=== PATIENT | female | born 1935 | race Caucasian/White ===

== ENCOUNTER 2023-08-24 01:09 | Inpatient (IN) | payer MEDICARE, OTHER, SELFPAY ==
[2023-08-23 22:08] VITALS: BP 115/88
--- NOTE | 2023-08-23 22:16 | ED.GENMED ---
History of Present Illness
General
Chief Complaint: Musculo-Skeletal Complaint
Source: patient and ambulance crew
Exam Limitations: altered mental status and dementia
Time Seen by Provider: 08/23/23 22:07
Nursing documentation reviewed up to this point in time: agreed with
History of Present Illness
History of Present Illness:
Pleasantly demented 87-year-old female from [facility] who presents with right hip pain. Patient had an unwitnessed fall
Past History
Past History
ED Past Medical History: GERD, HTN, Hypercholesterolemia and Other (Dementia, paranoia)
Social History
Tobacco: Other (Unknown)
Alcohol: Other (Unknown)
Drug: Other (Unknown)
Phy Exam
General Physical Exam
General Presentation: moderate distress
General age: appears older than age
General Skin: warm and dry
General Habitus: elderly and frail
General Mental: anxious and confused
General Hydration: dry mucous membranes
General Chronic Disability: demented
Neurological Exam
Neurological Exam: speech normal and confused (At baseline)
Musculoskeletal Exam
Musculoskeletal Exam: joint swelling
Skin Exam
Skin Exam: normal color and warm/dry
Psychiatric Exam
Psychiatric Exam: agitated and anxious
Course
Orders/Labs/Results
Orders:
Orders
08/23/23 22:07
Morphine Sulfate 4 mg IV NOW STA
Ondansetron Injectable [Zofran] 4 mg IV NOW STA
CR Hip - RT w/wo Pel 2-3 Vw* Urgent
Comment:
Reason For Exam: pain after fall
Include a pelvis x-ray?: Yes
08/23/23 22:17
CT Head W/o Iv Contrast Urgent
Comment:
Reason For Exam: fall, confusion
08/23/23 22:25
Complete Blood Count/With Diff Urgent
Comprehensive Metabolic Panel Urgent
PTT Urgent
Prothrombin Time Urgent
08/23/23 22:30
Lorazepam [Ativan] 1 mg IV NOW STA
08/23/23 22:37
Urinalysis Reflex To Culture Urgent
Date Specimen was Collected: 08/23/23
Time Specimen was Collected: 22:36
Urine Microscopic Reflex Cult Urgent
Urine Culture Urgent
JILL Source: U
Specimen Description:
Date Specimen was Collected: 08/23/23
Time Specimen was Collected: 22:36
08/24/23 00:55
EKG [Electrocardiogram (*1)] Routine
Reason for Study: PreOp
08/24/23 01:09
Admit/Transfer Patient As Directed
Co-Sign Provider:
Level of Care: Inpatient admission
Assign to:: Medical/Surgical
Physician / Group: [email or web address]
Diagnosis: Acute closed Rt Hip Fx s/p unwitnessed fall
Reason for Hospitalization: Acute closed Rt Hip Fx s/p unwitnessed fall
Expected length of stay greater than two midnights?: Yes
ELOS- Estimated Length of Stay in days: 3
I certify the patient meets the requirements for IP care: Yes
08/24/23 01:11
Code Status As Directed
Resuscitation Status: Full Code
Abnormal Lab Results
08/23/23 08/23/23
22:25 22:37
RBC 3.73 L 10^6/uL
(4.20-5.40)
Hgb 10.9 L g/dL
(12.0-16.0)
Hct 33.2 L %
(37.0-47.0)
MCHC 32.8 L g/dL
(33.0-37.0)
Absolute Neuts (auto) 7.3 H 10^3/uL
(1.4-6.5)
Absolute Monos (auto) 0.8 H 10^3/uL
(0.1-0.6)
Lymphocytes % 17.4 L %
(20.5-51.1)
Sodium 134 L mmol/L
(135-145)
Carbon Dioxide 31 H mmol/L
(22-30)
BUN 25 H mg/dl
(7-17)
Glucose 133 H mg/dl
(70-99)
Leukocyte Esterase Rfl 1+ A
(Negative)
Urine Bacteria (Reflex) Many A
(Negative)
08/23/23 22:25
08/23/23 22:25
Vital Signs
Initial and Last Documented VS:
Initial Vital Signs
Temp Pulse BP Pulse Ox
98.4 F 100 115/88 98
08/23/23 22:08 08/23/23 22:08 08/23/23 22:08 08/23/23 22:08
Last Documented Vital Signs
Temp Pulse Resp BP Pulse Ox
98.4 F 104 17 123/72 97
08/23/23 22:08 08/23/23 22:45 08/23/23 22:45 08/23/23 22:39 08/23/23 22:45
*Radiology
Radiology exam reviewed: preliminary read by ED provider (X-ray of the hip shows obvious fracture. CT of the head negative) and radiology read reviewed
*Pulse Oximetry
Patient hypoxic: no
*Critical Care Note
Total Time (30-74mins, 75-104mins- exclusive of procedures): Not Applicable
Patient Management
Social determinants of health affecting care: Living situation
Discussion with other providers: Hospitalist and Erp Consultant (Dr. Maria, orthopedic surgery)
ED Attending Note
-
Portions of this chart may have been created with voice recognition software.� Occasional wrong word or��sound alike� substitutions may have occurred due to the inherent limitations of voice recognition software.
Discharge Plan
Departure
Patient Disposition: Admit
Date of Disposition: 08/24/23
Time of Disposition: 00:11
Admit to: Med/Surg
Presentation/result/management discussed w/ accepting MD/DO: Hospitalist
Discharge Problem:
Closed fracture of right hip, Dementia
Prescriptions:
No Action
acetaminophen 325 MG tablet
650 mg PO Q4HPRN PRN (Reason: mild pain/temp>100F)
Referrals:
Quincy Goncalves DO [Family Provider] -
Interventions
Interventions:
*Risk Screen - Suicide Last Done: 08/23/23 22:08
*General Assessment Last Done: 08/23/23 22:08
*Neglect/Abuse Screening Last Done: 08/23/23 22:08
ED- Fall Risk Assessment Last Done: 08/23/23 22:20
*ED COVID-19 Vaccine History Last Done: 08/23/23 22:20
ED-Musculoskeletal Assessment Last Done: 08/23/23 22:20
Discharge Date and Time
Print Language: CHADIAN
[2023-08-23] MEDS: MORPHINE SULFATE 4 MG IV (22:23)
[2023-08-23] MEDS: ZOFRAN 4 MG IV (22:24)
[2023-08-23] MEDS: ATIVAN 1 MG IV (22:36)
[2023-08-23 22:37] LABS: % Basophils 0.4 % (0-2); % Eosinophils 1.5 % (0-6); % Immature Granulocytes 0.4 % (0-0.5); % Lymphocytes 17.4 % (20.5-51.1); % Monocytes 8.2 % (1.7-9.3); % Neutrophils 72.1 % (42.2-75.2); Absolute Eosinophils 0.2 10^3/uL (0-0.7); Absolute Lymphocytes 1.8 10^3/uL (1.2-3.4); Absolute Monocytes 0.8 10^3/uL (0.1-0.6); Absolute Neutrophils 7.3 10^3/uL (1.4-6.5); Hematocrit 33.2 % (37.0-47.0); Hemoglobin 10.9 g/dL (12.0-16.0); Mean Corp Hgb Conc. 32.8 g/dL (33.0-37.0); Mean Corpuscular Hgb 29.2 pg (27.0-31.0); Mean Platelet Volume 9.5 fL (7.4-10.4); Nucleated Red Blood Cells % 0 %; Platelet Count 310 10^3/uL (130-400); Red Blood Cell Count 3.73 10^6/uL (4.20-5.40); Red Cell Dist. Width 14.5 % (11.5-14.5); White Blood Cell Count 10.1 10^3/uL (4.8-10.8)
[2023-08-23 22:39] VITALS: BP 123/72
[2023-08-23 22:47] LABS: Urine Albumin Negative (Neg - Trace); Urine Bilirubin Negative (Negative); Urine Character Slightly Cloudy (Clear); Urine Color Yellow; Urine Glucose Negative (Negative); Urine Ketone Negative (Negative); Urine Leukocyte 1+ (Negative); Urine Nitrite Negative (Negative); Urine Occult Blood Negative (Negative); Urine Urobilinogen Negative (Neg - 1+)
[2023-08-23 22:55] LABS: ALT (SGPT) 22 U/L (0-35); AST (SGOT) 29 U/L (14-36); Albumin 3.8 g/dl (3.5-5.0); Alkaline Phosphatase 99 U/L (38-126); Blood Urea Nitrogen 25 mg/dl (7-17); Calcium 9.9 mg/dl (8.4-10.2); Carbon Dioxide 31 mmol/L (22-30); Chloride 99 mmol/L (98-107); Glucose 133 mg/dl (70-99); Potassium 4.8 mmol/L (3.5-5.1); Sodium 134 mmol/L (135-145); Total Bilirubin 0.5 mg/dl (0.2-1.3); Total Protein 6.8 g/dl (6.3-8.2); eGFR > 60.00
[2023-08-23 22:55] LABS: Urine Bacteria Many (Negative); Urine Red Blood Cell 0-2 /HPF (0-2); Urine Squamous Cell 0-2 /LPF (Few)
[2023-08-23 23:00] VITALS: BP 119/56
[2023-08-23 23:42] VITALS: BP 122/61
[2023-08-23 23:52] LABS: APTT 23.4 Sec (23.4-35.0); INR 0.99; PT 13.1 Sec (11.4-14.6)
[2023-08-24] VITALS (19 sets, daily range): BP systolic 89–184; BP diastolic 45–154
--- NOTE | 2023-08-24 01:01 | HPS.HSE ---
Family Physician
-
Family Physician: Quincy Goncalves
Chief Complaint
-
fall and Rt Hip Pain
History of Present Illness
87F HX Dementia, Res of [facility] for s/p unwitnessed fall and screaming due to acute Rt Hip pain
No further HPI can be established due to dementia.
Medical History
Past Medical History
Past Medical History: Reports Dementia (with paranoia ), HTN, Hypercholesterolemia and NIDDM
Past Surgical History: Reports Other (not available )
Social History
Tobacco: Other (unknown )
Alcohol: None
Living: Residential
Family History
Family History: Not pertinent
Allergies / Home Medications
Allergies reflects when Allergies were last updated in [employer].
Home Medications with original date entered in [employer]
Allergy/Medication List:
Allergies
Allergy/AdvReac Type Severity Reaction Status Date / Time
Fish Containing Products Allergy Unknown Verified 04/29/20 14:45
Home Medications
acetaminophen 325 mg tablet 650 mg PO Q4HPRN PRN mild pain/temp>100F 03/31/21
Review of Systems
-
Unable to obtain full review of systems at this time due to: Dementia
Constitutional: Reports No Symptoms
EENT: Reports No Symptoms
Respiratory: Reports No Symptoms
Cardiac: Reports No Symptoms
Abdomen/GI: Reports No Symptoms
: Reports No Symptoms
Musculoskeletal: Reports Joint Pain (R Hip pain )
Skin: Reports No Symptoms
Neurological: Reports No Symptoms
Endocrine: Reports No Symptoms
Hematologic/Lymphatic: Reports No Symptoms
Psych: Reports No Symptoms
Physical Exam
Vital Signs
Vital Signs
Temp Pulse Resp BP Pulse Ox
98.4 F 104 17 123/72 97
08/23/23 22:08 08/23/23 22:45 08/23/23 22:45 08/23/23 22:39 08/23/23 22:45
Physical Exam
General: Well Nourished (thin and looks cahectic ) and Other (sleeping s/p IV Morphine 4mg plus IV Ativan 1mg given at ER )
HEENT: NormoCephalic and Anicteric
Respiratory: Clear
Cardiac: S1/S2 and Regular Rhythm
Breast: Deferred by me
GI: Soft, Non Tender and Non Distended
Rectal: Deferred by Provider
Genito-urinary: Deferred by me
Skin: Warm and Dry
Neuro: Sedated and Other
Psych: Other (sleeping IV Morphine 4mg plus IV Ativan 1mg given at ER )
Laboratory Results
-
08/23/23 22:25
08/23/23 22:25
Laboratory Results
PT 13.1 Sec (11.4-14.6) 08/23/23 22:25
INR 0.99 08/23/23 22:25
APTT 23.4 Sec (23.4-35.0) 08/23/23 22:25
Total Bilirubin 0.5 mg/dl (0.2-1.3) 08/23/23 22:25
AST 29 U/L (14-36) 08/23/23 22:25
ALT 22 U/L (0-35) 08/23/23 22:25
Alkaline Phosphatase 99 U/L (38-126) 08/23/23 22:25
Data Reviewed
-
CT Scan: Discussed with Physician
Lab Data: Labs Reviewed by me
Old Records: Reviewed
Impression/Plan
-
Reviewed VS: Afebrile HR 100s BP 115/88 POx 98 on RA
Data
WCC 10
Hgb 10.9 -last Hgb was 13.2 in 2020
Na 134 BG 133
CO2 31
BUN 25
Cr 0.6 eGFR > 60
nl LFTs
Unremarkable UA for UTI
UCx sent
Rt Hip XR: R Hip closed Fx
NEG HCT
Last hospitalist admission: NIL
ASSESSMENT & PLAN
Acute closed Rt Hip Fx s/p unwitnessed Fall at the facility
- EKG
- RCRI zero class I risk
- Benefit out weigh risk floor ortho ORIF
- Medically acceptable to proceed with ORIF if indicated
- Fx protocol set for pain control, BW regime
- Ortho consulted
Lethargic s/p IV Morphine 4mg plus IV Ativan 1mg given at ER
- Aspiration precaution but current she is NPO
- Judicious use of pain Meds and hold if or excessive sedation
HX Dementia with paranoia
- Falls precaution
Conditions BOX ICER : pending Rx reconciliation
DMT2; add ISS low
GERD
Primary HTN
Hypercholesterolemia
DVT Px: SCD
Code: Full
IP MS
--- NOTE | 2023-08-24 03:18 | PTCARENOTE ---
Pt transfer from ER 2:20, pt lethargic, drowsy, rec'd ativan and morphine in ER. Pt arousable to verbal stimuli however unable to answer admission questions, pt resides at [facility], nurse attempted x2 to call for report /admission information ,
unable to get staff on the line. pt rec;vd aysha care incon of urine. bed alram in place hx dx dementia and Alzheimer, behaviors reported from ER. pt is cachectic, skin fragile dry , stage 1 sacrum, heels dry with thick calloused skin as well as on
feet and toe nails thick, long and yellow discolored. VS stable, oriented to unit.
[2023-08-24 03:51] LABS: Glucose - Point of Care 128 mg/dl (70-99)
--- NOTE | 2023-08-24 05:49 | PTCARENOTE ---
[facility] called x2 for further vaccine information, they did not return call and second time nurse called the line was hung up .
[2023-08-24 08:19] LABS: Glycohemoglobin (HgbA1c) 5.9 % (4.0-5.6)
--- NOTE | 2023-08-24 08:21 | W.PN.UPDATE ---
Update Note
Progress Note Update
Full H&P to follow; patient seen this a.m. Tentative for OR this afternoon for right hip cephalomedullary nail fixation with Dr. Maria. Due to baseline dementia patient is unable to consent. Power of spragger/daughter listed in chart and left
voicemail x 2 at both numbers. Will try again for consent for surgery.
N.p.o. for OR this afternoon tentative. Antibiotics on-call to operating room
Pending verification of medication list, no indication of current anticoagulant therapy
[2023-08-24] MEDS: NOVOLOG FLEXPEN-LOW RESISTANCE SC ×3 (08:23→17:30)
[2023-08-24 12:14] LABS: Glucose - Point of Care 82 mg/dl (70-99)
--- NOTE | 2023-08-24 15:37 | CM ---
Patient currently in OR. Patient is LTC at [facility], and is a Medicaid bed hold. Patient has been at facility since 2019. CM called to admissions at [facility]. Admissions indicated that they would call CM with past level of care. If
patient ready for discharge back to facility please call Nicky Finch the concrete stone finishing supervisor weekend person for [place] at [phone]. CM will continue to follow for discharge planning needs.
Plan; return to SNF when medically appropriate.
[2023-08-24 15:52] LABS: Glucose - Point of Care 94 mg/dl (70-99)
--- NOTE | 2023-08-24 17:59 | CON.ORTHO ---
Consultation
-
Date/Time Consultation Requested: 08/24/2023 0244
Date/Time Consultation Performed: 08/24/2023 0800
Requesting Provider: Dr. John Syed
Performing Provider: JOSE Lopez, Dr. Toshia Maria
Reason for Consultation: Right hip fracture
Consultation - Orthopedics
History
87-year-old female presenting for her long-term assisted living facility with significant past medical history of advanced dementia presenting via EMS to [facility] for an unwitnessed fall and pain throughout the right lower extremity when
found. Medical workup and x-rays of the right hip shows a displaced intertrochanteric femur fracture. No other reported injuries to date. Power of health care attorney listed as her daughter. Patient is unable to provide collateral information on history
and physical, majority information collected from chart review and from daughter.
Allergies / Home Medications
Allergy/AdvReac Type Severity Reaction Status Date / Time
Fish Containing Products Allergy Unknown Verified 04/29/20 14:45
�Medication �Instructions �Recorded
acetaminophen 325 mg tablet 650 mg PO Q4HPRN PRN mild 03/31/21
pain/temp>100F
Past Medical History: Reports Dementia (with paranoia ), HTN, Hypercholesterolemia and NIDDM
Past Surgical History: Reports Other (not available )
Social History
Tobacco: Other (unknown )
Alcohol: None
Living: Senior Living
Family History
Family History: Not pertinent
Vital Signs / Lab Results
Temp Pulse Resp BP Pulse Ox
98.2 F 110 16 137/72 91
08/24/23 17:13 08/24/23 17:13 08/24/23 17:13 08/24/23 17:13 08/24/23 17:13
08/23/23 22:25
08/23/23 22:25
Physical examination: Examination of the right hip shows skin is intact with no erythema edema or ecchymosis. Extremity is shortened and externally rotated. Patient demonstrates motor function intact distally but unable to provide response for
sensation with baseline mental status. Discomfort with logroll but no significant tenderness about the knee, lower leg or ankle or foot.
Imaging: X-rays taken of the right hip show displaced intertrochanteric femur fracture
Assessment / Plan
87-year-old female right displaced intertrochanteric femur fracture with significant past medical history advanced dementia without reported anticoagulant therapy
Power of health care attorney listed in documentation as the patient's daughter who was successfully contacted. Discussed with the power of health care attorney/daughter the significance of hip fractures there is an increased morbidity and mortality associated with these
and they are significant injuries; reviewed that a portion of patient's return towards ambulatory baseline status, another subset of patients are decreased when activity level, and other subset of patients pass away relative to comorbid conditions
and decreased ambulatory status. Discussed it is recommended for majority of patients to undergo operative intervention for optimal outcomes so that they may have an increased ambulatory status. It was further discussed with the patient that the
injury sustained is considered a fragility fracture which occurs in the setting of osteoporosis. Discussed with the patient the significance of this as there is an increased risk of further fragility fractures in the future. Recommend when
discharged and in the nearby future for a follow-up with her primary care provider and discussion of management of osteoporosis and mitigating fall risk is much as possible in the future.
Images were reviewed and discussed with the POA/daughter regarding the patient's injury. The injury and respective operative and nonoperative interventions reviewed with the respective family member to include the risks and benefits rehabilitation
and prognosis for each. The treatment and operative technique, postoperative follow-up, postoperative rehabilitation and surgical prognosis was reviewed in detail. After thorough discussion of potential treatment options the respective family
member/POA wish to proceed with operative intervention.
Patient planned for OR for right cephalomedullary nail fixation [address] Maria[address] However health care attorney/daughter discussed operative and nonoperative options with Dr. Maria and obtained consent.
-Nonweightbearing to right lower extremity
-N.p.o.
-Antibiotics on-call to operating room
-Will update postoperative recommendations
--- NOTE | 2023-08-24 18:01 | W.PN.HOSP.TC ---
Today's Communication/Plan
-
PT/OT when able--pt post op
NSS
Assessment / Plan
Assessment / Plan
pt is an 87 year old female
Acute closed Rt Hip Fx s/p unwitnessed Fall at the facility--apprec ortho--s/p ORIF--will need PT/OT if can follow commands
Lethargic s/p IV Morphine 4mg plus IV Ativan 1mg given at ER --pain meds as able, use minimal dosing to provide pain relief
HX Dementia with paranoia-- Falls precaution --renew restraints
DMT2--add ISS low
GERD
Essential HTN-- no meds listed
Hypercholesterolemia --noted
DVT Px: SCD
Code: Full
Anticipated Discharge: > 48 hours
Subjective/Interval History
-
Date of Service: August 24, 2023
pt with dementia--returned from surgery
Objective Data
-
Vital Signs:
max temp for 24 hours
08/23/23
22:08
Temp 98.4 F
Vital Signs
Temp Pulse Resp BP Pulse Ox
98.2 F 110 16 137/72 91
08/24/23 17:13 08/24/23 17:13 08/24/23 17:13 08/24/23 17:13 08/24/23 17:13
I&O
08/23/23 08/24/23 08/25/23
06:59 06:59 06:59
Intake Total 50 / 50
Balance 50 / 50
Review of Systems
-
Unable to obtain full review of systems at this time due to: Dementia
Physical Exam
-
General: Appears Chronically Ill and Cachectic
HEENT: Normocephalic and Atraumatic
Respiratory: Clear to Auscultation; Negative Wheezes or Rhonchi
Cardiac: Regular Rhythm, S1/S2, Murmur and Tachycardic
GI: Soft, Nontender, Nondistended and Normal Bowel Sounds
Musculoskeletal: No Clubbing, No Cyanosis and No Edema
[2023-08-24] MEDS: NSS 1000 IV (18:19)
--- NOTE | 2023-08-24 18:35 | PTCARENOTE ---
return to floor about 1715. Placed in restraints d/t removing IV and pulling at dressings., being uncooperative to care, and for her safety. Started IVF d/t HR 110. bed low call ace in [facility]. NPO until o600? but supply sips of H20. HOB. applied
pure for cleanliness. dressings CDI
[2023-08-24] MEDS: ASPIRIN 325 MG PO (21:00)
[2023-08-24 21:58] LABS: Glucose - Point of Care 140 mg/dl (70-99)
[2023-08-24] MEDS: ANCEF 5 IV (23:05)
[2023-08-25 03:38] VITALS: BP 104/69
[2023-08-25] MEDS: NSS 1000 IV (04:19)
[2023-08-25] MEDS: ANCEF 5 IV (06:00)
--- NOTE | 2023-08-25 06:15 | PTCARENOTE ---
Received patient at start of nightshift in b/l soft limb restraints and 4 bed rails up, during this nightshift restraints could not be removed as patient continued pulling on IV line and could not follow direction; had also received patient with
purewick in place, had 450ml output this nightshift, device changed twice during this shift, device remains in use as patient is combative and uncooperative when attempting to change incontinent attends; will give updated report to dayshift RN to
continue to monitor.
[2023-08-25 07:15] VITALS: BP 119/72
[2023-08-25 07:32] LABS: Glucose - Point of Care 89 mg/dl (70-99)
[2023-08-25] MEDS: NOVOLOG FLEXPEN-LOW RESISTANCE SC ×3 (07:48→18:10)
[2023-08-25] MEDS: ASPIRIN PO (08:48)
--- NOTE | 2023-08-25 09:04 | W.PN.HOSP.TC ---
Today's Communication/Plan
-
await PT/OT
d/c IVF
Assessment / Plan
Assessment / Plan
pt is an 87 year old female
Acute closed Rt Hip Fx s/p unwitnessed Fall at the facility--apprec ortho--s/p ORIF, POD 1--will need PT/OT if can follow commands--pain meds as able, use minimal dosing to provide pain relief--labs pending
HX Dementia with paranoia-- Fall precautions
DMT2--add ISS low
GERD
Essential HTN-- no meds listed
Hypercholesterolemia --noted
DVT Px: SCD
Code: Full
Anticipated Discharge: 24 - 48 hours
Subjective/Interval History
-
Date of Service: August 25, 2023
pt awake and mad that she is in restraints
Objective Data
-
Labs:
Laboratory Results
08/25/23
08:34
WBC Pending
Hgb Pending
Hct Pending
Plt Count Pending
Sodium Pending
Potassium Pending
Chloride Pending
Carbon Dioxide Pending
BUN Pending
Creatinine Pending
Glucose Pending
Calcium Pending
Vital Signs:
max temp for 24 hours
08/24/23
20:45
Temp 99.3 F
Vital Signs
Temp Pulse Resp BP Pulse Ox
97.2 F 106 16 119/72 98
08/25/23 07:15 08/25/23 07:15 08/25/23 07:15 08/25/23 07:15 08/25/23 07:15
I&O
08/24/23 08/25/23 08/26/23
06:59 06:59 06:59
Intake Total 1250 / 1250
Output Total 450 / 450
Balance 800 / 800
Review of Systems
-
Unable to obtain full review of systems at this time due to: Dementia
Physical Exam
-
General: Appears Chronically Ill, Cachectic and Other (soft limb (R/L) wrist restraints)
HEENT: Normocephalic and Atraumatic; Negative Oxygen
Respiratory: Clear to Auscultation; Negative Wheezes or Rhonchi
Cardiac: Regular Rhythm and S1/S2; Negative Murmur
GI: Soft, Nontender, Nondistended and Normal Bowel Sounds
Musculoskeletal: No Clubbing, No Cyanosis and No Edema
Psych: Agitated
[2023-08-25 09:25] LABS: Hematocrit 28.3 % (37.0-47.0); Mean Corp Hgb Conc. 31.8 g/dL (33.0-37.0); Mean Corpuscular Hgb 28.8 pg (27.0-31.0); Mean Corpuscular Volume 90.7 fL (81.0-99.0); Mean Platelet Volume 9.7 fL (7.4-10.4); Platelet Count 283 10^3/uL (130-400); Red Blood Cell Count 3.12 10^6/uL (4.20-5.40); Red Cell Dist. Width 14.2 % (11.5-14.5); White Blood Cell Count 9.7 10^3/uL (4.8-10.8)
[2023-08-25 09:30] LABS: Blood Urea Nitrogen 13 mg/dl (7-17); Calcium 8.9 mg/dl (8.4-10.2); Carbon Dioxide 28 mmol/L (22-30); Chloride 97 mmol/L (98-107); Estimated Creatinine Clearance 42 ml/min; Glucose 81 mg/dl (70-99); Magnesium 2.1 mg/dl (1.6-2.3); Sodium 134 mmol/L (135-145); eGFR > 60.00
[2023-08-25 12:00] VITALS: BP 119/82
--- NOTE | 2023-08-25 12:54 | W.PN.ORTHO ---
Today's Communication / Plan
-
87F POD1 R hip ROSETTE w/ Dr. Maria
-Partial weightbearing right lower extremity with assistive devices
-PT/OT/discharge planning
-Recommend 325 mg aspirin daily x 30 days unless other chemoprophylaxis recommended per primary
-Pain controlled on current regimen
-Diet per primary
-Postop antibiotics completed
-Orthopedic surgery will continue to follow
Assessment
.
Distal Motor Intact: Yes
Dressing:
Clean, dry and intact.
Plan
.
Surgery / Date: 24 August 2023 R hip CMN w/ Dr. Maria
Activity:
Out of bed.
PT/OT
Subjective
.
.:
Patient resting sitting upright. Agitated with baseline dementia. No significant hip pain complaint
Vital Signs and Labs
.
Vital Signs and Labs:
Lab Results
08/25/23 08:34
08/25/23 08:34
Temp Pulse Resp BP Pulse Ox
97.6 F 107 16 119/82 100
08/25/23 12:00 08/25/23 12:00 08/25/23 12:00 08/25/23 12:00 08/25/23 12:00
PT 13.1 Sec (11.4-14.6) 08/23/23 22:25
INR 0.99 08/23/23 22:25
--- NOTE | 2023-08-25 14:02 | PTCARENOTE ---
0830. spit morning meds at nurse. refusing all care trying to swing and hit. d/c restraints to hopefully alleviate heightened agitation, grapping at Iv and ripping/removed.
Order for surjit chair at 1010. Family arrived. Very concerned but not surprised. would like podiatry to look at her feet. Nurse stated we are acute care/also risk for infection. Need to set thing up with LP. While trying to clean and changed brief pt
is hitting nurse/tech. Did place on commode and did urinate. Ate lunch. Attempt pills with family spit pills at them. Asked to bring in glasses b/c she is risk for falling without but they think LP lost them.
1130. pt would not allow blood sugar to be drawn
[2023-08-25 16:00] VITALS: BP 124/86
[2023-08-25 16:35] LABS: Glucose - Point of Care 111 mg/dl (70-99)
[2023-08-25 21:19] LABS: Glucose - Point of Care 97 mg/dl (70-99)
[2023-08-25 23:02] VITALS: BP 118/62
--- NOTE | 2023-08-26 06:43 | PTCARENOTE ---
patient fell asleep approx 0130. pleasant in evening with staff, cooperative with hygiene but did not want to take any medication.
[2023-08-26 07:27] VITALS: BP 127/67
[2023-08-26 08:40] LABS: Glucose - Point of Care 119 mg/dl (70-99)
[2023-08-26] MEDS: NOVOLOG FLEXPEN-LOW RESISTANCE SC ×2 (08:52→11:57)
[2023-08-26] MEDS: ASPIRIN PO (08:53)
--- NOTE | 2023-08-26 11:48 | W.PN.ORTHO ---
Today's Communication / Plan
-
87F POD2 R hip ROSETTE w/ Dr. Maria
-Partial weightbearing right lower extremity with assistive devices
-PT/OT/discharge planning
-Recommend 325 mg aspirin daily x 30 days unless other chemoprophylaxis recommended per primary
-Pain controlled on current regimen
-Diet per primary
-Orthopedic surgery will follow peripherally at this time; voicemail was left with family member regarding orthopedic care standpoint. Discharge information was completed
Assessment
.
Dressing:
Clean, dry and intact. Minimal strikethrough
Plan
.
Surgery / Date: 24 August 2023 R hip ROSETTE w/ Dr. Maria
DVT Prophylaxis: Aspirin
Activity:
Out of bed.
PT/OT
Subjective
.
.:
Patient resting comfortably.
Vital Signs and Labs
.
Vital Signs and Labs:
Lab Results
08/25/23 08:34
08/25/23 08:34
Temp Pulse Resp BP Pulse Ox
98.3 F 108 16 127/67 98
08/26/23 07:27 08/26/23 07:27 08/26/23 07:27 08/26/23 07:27 08/26/23 07:27
PT 13.1 Sec (11.4-14.6) 08/23/23 22:25
INR 0.99 08/23/23 22:25
--- NOTE | 2023-08-26 12:35 | W.PN.HOSP.TC ---
Today's Communication/Plan
-
would d/c back to SNF in AM if remains stable
Assessment / Plan
Assessment / Plan
pt is an 87 year old female
Acute closed Rt Hip Fx s/p unwitnessed Fall at the facility--apprec ortho--s/p ORIF, POD 2--will need PT/OT if can follow commands--pain meds as able, use minimal dosing to provide pain relief--asa for DVT proph
HX Dementia with paranoia-- Fall precautions
DMT2--add ISS low
GERD
Essential HTN-- no meds listed
Hypercholesterolemia --noted
DVT Px: SCD
Code: Full
Anticipated Discharge: Within 24 hours
Subjective/Interval History
-
Date of Service: August 26, 2023
pt calm
Objective Data
-
Vital Signs:
max temp for 24 hours
08/25/23
23:02
Temp 98.8 F
Vital Signs
Temp Pulse Resp BP Pulse Ox
98.3 F 108 16 127/67 98
08/26/23 07:27 08/26/23 07:27 08/26/23 07:27 08/26/23 07:27 08/26/23 07:27
I&O
08/25/23 08/26/23 08/27/23
06:59 06:59 06:59
Intake Total 1250 / 1250 660 / 660 480 / 480
Output Total 450 / 450
Balance 800 / 800 660 / 660 480 / 480
Review of Systems
-
All other systems: Reviewed and negative
Physical Exam
-
General: Well Developed, No Apparent Distress, Appears Chronically Ill and Cachectic
HEENT: Normocephalic and Atraumatic
Respiratory: Clear to Auscultation; Negative Wheezes or Rhonchi
Cardiac: Regular Rhythm and S1/S2; Negative Murmur
GI: Soft, Nontender, Nondistended and Normal Bowel Sounds
Musculoskeletal: No Clubbing, No Cyanosis and No Edema
[2023-08-26 16:11] LABS: Glucose - Point of Care 331 mg/dl (70-99)
[2023-08-26 16:25] VITALS: BP 123/47
[2023-08-26 18:07] LABS: Glucose - Point of Care 326 mg/dl (70-99)
[2023-08-26] MEDS: NOVOLOG FLEXPEN-LOW RESISTANCE 4 UNITS SC (18:24)
--- NOTE | 2023-08-26 19:25 | PTCARENOTE ---
BS spiked to 331 d/t having a soda. pt did hit and bite today. But at times pleasant, spoke on phone with kitchen at dinner to order own dinner with some difficulty.
[2023-08-26 21:24] LABS: Glucose - Point of Care 171 mg/dl (70-99)
[2023-08-26 23:40] VITALS: BP 112/65
[2023-08-27 06:36] LABS: Mean Corp Hgb Conc. 33.3 g/dL (33.0-37.0); Mean Corpuscular Hgb 29.1 pg (27.0-31.0); Mean Corpuscular Volume 87.4 fL (81.0-99.0); Mean Platelet Volume 9.7 fL (7.4-10.4); Platelet Count 329 10^3/uL (130-400); Red Blood Cell Count 3.09 10^6/uL (4.20-5.40); Red Cell Dist. Width 14.1 % (11.5-14.5); White Blood Cell Count 7.4 10^3/uL (4.8-10.8)
[2023-08-27 07:06] LABS: Blood Urea Nitrogen 14 mg/dl (7-17); Calcium 8.6 mg/dl (8.4-10.2); Carbon Dioxide 28 mmol/L (22-30); Chloride 100 mmol/L (98-107); Estimated Creatinine Clearance 42 ml/min; Glucose 113 mg/dl (70-99); Sodium 132 mmol/L (135-145); eGFR > 60.00
[2023-08-27 07:11] VITALS: BP 152/67
--- NOTE | 2023-08-27 07:27 | W.PN.HOSP.TC ---
Today's Communication/Plan
-
dc
Assessment / Plan
Assessment / Plan
pt is an 87 year old female
Acute closed Rt Hip Fx s/p unwitnessed Fall at the facility--apprec ortho--s/p ORIF, POD 3--will need PT/OT if can follow commands--pain meds as able, use minimal dosing to provide pain relief--asa for DVT proph
HX Dementia with paranoia-- Fall precautions . No agitation noted.
DMT2--add ISS low
GERD
Cosntipation, resolved. No abd pain or distended.
Essential HTN-- no meds listed
Hypercholesterolemia --noted
DVT Px: SCD
Code: Full
Total discharge time spent to see the patient, examine the patient on the floor, review data and lab results, discuss discharge plan with patient, nursing staff around 65 minutes.
Anticipated Discharge: Today
Subjective/Interval History
-
Date of Service: August 27, 2023
No events over night
Had BM
Objective Data
-
Labs:
Laboratory Results
08/27/23
05:26
WBC 7.4
Hgb 9.0 L
Hct 27.0 L
Plt Count 329
Sodium 132 L
Potassium 4.0
Chloride 100
Carbon Dioxide 28
BUN 14
Creatinine 0.3 L
Glucose 113 H
Calcium 8.6
Vital Signs:
Vital Signs
Temp Pulse Resp BP Pulse Ox
98.6 F 106 18 152/67 98
08/27/23 07:11 08/27/23 07:11 08/27/23 07:11 08/27/23 07:11 08/27/23 07:11
I&O
08/26/23 08/27/23 08/28/23
06:59 06:59 06:59
Intake Total 660 / 660 600 / 600
Balance 660 / 660 600 / 600
[2023-08-27 08:17] LABS: Glucose - Point of Care 114 mg/dl (70-99)
[2023-08-27] MEDS: NOVOLOG FLEXPEN-LOW RESISTANCE SC ×2 (08:30→11:53)
[2023-08-27] MEDS: ASPIRIN PO (08:51)
[2023-08-27 11:52] LABS: Glucose - Point of Care 138 mg/dl (70-99)
[2023-08-27 12:36] VITALS: BMI 15.8
--- NOTE | 2023-08-27 13:46 | CM ---
Addendum entered by Roseline Pritchard 08/27/23 13:59:
Transport to [facility] is scheduled for 4:40 PM. Facility notified.
Original Note:
Patient has been medically cleared for discharge back to [facility] for resumption of LTC. Daughter Donna Nicholas, has been notified. Catrachito in admissions at [facility] has been notified and accepted patient for return.
NURSE TO NURSE REPORT # [phone] (Main #)
FAX # [phone]
[2023-08-27 14:31] VITALS: BP 135/74
--- NOTE | 2023-08-27 14:39 | W.DCSUMMARY ---
Discharge Summary
Discharge Data
Date of Admission: 08/24/23
Date of Discharge: 08/27/23
-
Pending Results: No
Hospital Course
87 years old female admitted after mechanical fall and was found to have acute right hip fracture. Patient was evaluated by orthopedic doctor and was found to have displaced right intertrochanteric hip fracture and she underwent open reduction
with internal fixation with gamma nail by Dr. Maria on 08/24/23. No complications reported. Patient had history of advanced dementia with paranoia. She did not have severe agitation. She was given aspirin for deep venous thrombosis
prophylaxis. She was evaluated by physical therapy and recommended correction facility. Patient remained hemodynamically stable and was discharged in a stable condition.
Discharge Plan
-
Patient Disposition: Skilled Nursing/SNF
Discharge Diagnosis/Procedures: Acute closed right hip fracture after unwitnessed fall status post open reduction internal fixation, history of dementia with paranoia, type 2 diabetes mellitus, gastroesophageal reflux disease, essential
hypertension, hyperlipidemia
Deep venous thrombosis prophylaxis with aspirin 325 mg for 4 weeks
Condition: Fair
Diet: As tolerated
Activity: With assistance
Additional Activity: partial weight bearing right leg with walker
Driving Restrictions: No driving
Bathing Restrictions: OK to Shower
Wound Care: maintain dressings; can change 7-10 days out from surgery
Instructions: Hip Fracture (DC)
Referrals:
Quincy Goncalves I., DO [Family Provider] - in less than 1 week
Toshia Maria I., DO [Active] - (Please contact the office [phone] to schedule outpatient follow-up. If discharged to an assisted rehab facility they can perform a wound check 2 weeks from date of surgery for suture/staple removal. If not,
recommend outpatient follow-up with our office at 2 weeks from date of surgery for wound check. If 2-week wound care visit is done at acute rehab facility/correction facility recommend 4-week follow-up from date of surgery with x-rays to be
done and wound check of the hip and femur. Please contact contact sooner for questions or concerns)
Prescriptions:
New
sennosides [Senna Laxative] 8.6 mg Tablet
17.2 mg PO HS Qty: 20 0RF
aspirin 325 mg Tablet
325 mg PO DAILY Qty: 30 0RF
tamsulosin 0.4 mg Capsule
0.4 mg PO DAILYPRN PRN (Reason: bladder scan volume > 400 mL) Qty: 10 0RF
docusate sodium 100 mg Capsule
100 mg PO BID Qty: 60 0RF
risperidone 0.25 mg Tablet
0.25 mg PO [id number] PRN (Reason: severe agitation) Qty: 10 0RF
Continued
acetaminophen 325 MG tablet
650 mg PO Q4HPRN PRN (Reason: mild pain/temp>100F)
Discharge Orders:
Discharge Patient (As Directed); Ordered 08/27/23
Ordered By: Dustin Diaz
Discharge Date and Time
Discharge Date/Time: 08/27/23 16:59
Print Language: URDU
--- NOTE | 2023-08-31 15:27 | PN.CDI ---
Addendum entered and electronically signed by Dustin Diaz MD 08/31/23 16:13:
'Stage 1 sacral pressure injury, POA.'
Original Note:
CDI
- -
CDI:
Physician Documentation Request
Admit Date: 08/24/23 01:09
Dear Doctor Emily,
Patient admitted with right hip fracture s/p ORIF.
08/23 Nursing skin assessment, 'Stage 1 sacral pressure injury, POA.'
Physician documentation of the type and location of wounds is required for compliant documentation. Based on the above clinical findings and your assessment, please provide the following in your progress note:
Type (etiology) of ulcer/wound:
- Pressure (decubitus) ulcer
- Other
- Unable to determine
For a pressure ulcer, please also include the stage* of the ulcer:
- Stage 1 - Skin intact, non-blanchable redness
- Stage 2 - Partial thickness loss of dermis, includes intact or open blister
- Stage 3 - Full thickness tissue not including bone, tendon or muscle
- Stage 4 - Full thickness tissue loss, including exposed bone, tendon or muscle
- Unstageable - Full thickness loss in which the base of the ulcer is covered by slough (yellow, diane, perla, green or brown) and/or eschar (diane, brown or black) in the wound bed.
- Unable to determine
Use of terms such as suspected, likely, concern for, or probable (associated with a specific diagnosis that is being evaluated, monitored, or treated as if it exists) are acceptable and can be coded in the inpatient setting, when documented at the
time of discharge.
Thank you,
Toshia WATT,RN,CCDS
CDI Specialist
Available via tiger text
Please use your independent medical judgment in providing your response.
*Source: National Pressure Ulcer Advisory Panel (NPUAP)
== END 2023-08-27 16:59 | DRG 481 ==
LOC: 2 SOUTH 01:09
PROVIDERS: Internal Medicine; ADMITTING PHYSICIAN Internal Medicine; ATTENDING PHYSICIAN Internal Medicine; CONSULT PHYSICIAN Orthopaedic Surgery; EMERGENCY PHYSICIAN Student in an Organized Health Care Education/Training Program; FAMILY PHYSICIAN Internal Medicine
PROC: 0QS604Z Reposition Right Upper Femur with Internal Fixation Device, Open Approach (ICD-10-PCS; 2023-08-24)
DX: M80.051A Age-related osteoporosis with current pathological fracture, right femur, initial encounter for fracture (principal); F03.C2 Unspecified dementia, severe, with psychotic disturbance; R64 Cachexia; Z68.1 Body mass index [BMI] 19.9 or less, adult; E78.00 Pure hypercholesterolemia, unspecified; I10 Essential (primary) hypertension; L89.151 Pressure ulcer of sacral region, stage 1; K21.9 Gastro-esophageal reflux disease without esophagitis; E11.9 Type 2 diabetes mellitus without complications; W19.XXXA Unspecified fall, initial encounter; Y93.9 Activity, unspecified; Y92.129 Unspecified place in nursing home as the place of occurrence of the external cause; Z91.013 Allergy to seafood
CPT/HCPCS: 70450; 73502; 73552; 76000; 80048; 80053; 81003; 81015; 82962; 83036; 83735; 85025; 85027; 85610; 85730; 87086; 96374; 96375; 97163; 97167; 97530; 99285; C1713; C1769

== ENCOUNTER 2023-09-30 06:09 | Emergency (ER) | payer MEDICARE, OTHER, SELFPAY ==
[2023-09-30 06:12] VITALS: BP 118/72
[2023-09-30] MEDS: ATIVAN 1 MG IM (07:23)
--- NOTE | 2023-09-30 07:28 | ED.GENMED ---
History of Present Illness
General
Chief Complaint: Fall
Source: ambulance crew
Time Seen by Provider: 09/30/23 07:11
Travel History
Have you had any contact with someone who has COVID-19?: Unable to Answer
Do you have any symptoms of coronavirus? Fever > 100 degrees, chills, cough, shortness of breath, sore throat, loss of taste or smell, muscle aches, or headache?: Unable to Answer
History of Present Illness
History of Present Illness:
87-year-old female presenting to the emergency department via EMS from [facility] after she had an unwitnessed fall earlier today. Patient was recently seen at this facility in August diagnosed with a right hip fracture that was repaired
surgically. I am unable to get any history from the patient due to her history of Alzheimer's dementia with paranoid personality. Patient is not answering any of my questions and is very evasive during the history portion of the exam although
based off her history of dementia it was unlikely that we would obtain much history from the patient given her reported history. Patient reported back pain to nursing staff but is denying this presently to myself as well as other ER staff.
Past History
Past History
ED Past Medical History: GERD, HTN, Hypercholesterolemia, Psychiatric and Other (Dementia, paranoia)
ED Past Surgical History: Orthopedic
Social History
Tobacco: Other (Unknown)
Alcohol: Other (Unknown)
Drug: Other (Unknown)
Living: [facility]
Review of Systems
Review of Systems
All Other Systems: ROS reviewed and negative except as documented in HPI and ROS
Phy Exam
Physical Exam
Physical Exam:
GENERAL: Alert , intermittently yells but is in no acute distress
EYE: conjunctiva clear
NECK: Supple
ENT: o/p clr, mmm.
CARDIAC: Regular rate and rhythm
LUNGS: Clear breath sounds bilaterally, no acute respiratory distress, no wheezes/rales/rhonchi
NEUROLOGICAL: Alert but is not answering any of my questions
SKIN: Warm and dry, skin intact.
MUSCULOSKELETAL: well perfused.
PSYCH: Normal and appropriate interaction.
Scores
Heart Failure Risk
Heart Failure Risk Score: Not Applicable
Heart Score for Chest Pain Patients
STEMI patient?: Not applicable
Withdrawal Assessment of Alcohol
Withdrawal Assessment Completed?: Not applicable
Course
Orders/Labs/Results
Orders:
Orders
09/30/23 07:14
Lorazepam [Ativan] 1 mg IM NOW STA
CR Pelvis - 1 Or 2 Views Urgent
Comment:
Reason For Exam: fall, pain, recent right hip fx
09/30/23 07:15
Lorazepam [Ativan] 2 mg .ROUTE .STK-MED ONE
09/30/23 09:32
Restraints - Non Violent As Directed
Justification-Patient:: 1-Attempts to remove tube
Restraint Type-: Soft Limb-L&R Wrist/4rail
Apply From (date): 09/30/23
Apply from (time): 09:32
Remove (date): 10/01/23
Remove (time): 23:59
09/30/23 09:33
Haloperidol Lactate [Haldol] 3 mg IM NOW STA
Vital Signs
Initial and Last Documented VS:
Initial Vital Signs
Temp Pulse Resp BP Pulse Ox
98.4 F 100 20 118/72 99
09/30/23 06:12 09/30/23 06:12 09/30/23 06:12 09/30/23 06:12 09/30/23 06:12
Last Documented Vital Signs
Temp Pulse Resp BP Pulse Ox
98.4 F 82 16 134/66 100
09/30/23 06:12 09/30/23 10:22 09/30/23 10:22 09/30/23 10:22 09/30/23 10:22
MDM/Problems Addressed
Differential Diagnosis Includes:
Mechanical fall, head injury, recurring hip injury
MDM/Problems Addressed:
87-year-old female presenting the emergency department for evaluation of an unwitnessed fall. There are no signs of trauma on the patient's person. She is very difficult to obtain any history as she will not answer any questions or state if she is
having any pain. Will obtain a CT of the head and x-ray of the pelvis given her recent hip fracture. She is otherwise stable and in no acute distress at this time.
Chronic conditions affecting care: Other (Dementia)
*Radiology
Radiology exam reviewed: preliminary read by ED provider (No acute pelvic fracture )
*Pulse Oximetry
Patient hypoxic: no
*Critical Care Note
Total Time (30-74mins, 75-104mins- exclusive of procedures): Not Applicable
Data Reviewed
Review of Other/Old Records Reveals: Labs, Records and Discharge Summary
Source: records and ambulance crew
Comment
Comment:
Patient continuously yelling and attempting to bite/hit staff. Unable to obtain head CT. I spoke to patient's daughter via telephone about patient's presentation to the emergency department as well as workup here. Informed that attempted to
obtain a CT of the head twice however patient attempting to bite and spit at staff and unable to be redirected for CT to be obtained. Daughter was okay with us needing to chemically or mechanically sedate the patient to obtain CT scan. Patient
does not have an advanced directive or living will and for the time being is full code. We ordered additional 3 mg of Haldol IM for agitation and patient was placed in soft wrist restraints.
Patient Management
Social determinants of health affecting care: Living situation
Escalation/DeEscalation of care consider admission/obs:
Following Haldol patient was more cooperative with us in the emergency department so patient was brought back to the CT scan 2 separate times however both times she would make it to the CT scanner but upon needing to get her onto the table patient
would start attempting to bite, kick and hit staff so she will be brought back to the ER. Ultimately decision was made that it was in patient's best interest to forego the head CT as I did not want to further sedate her. I contacted the patient's
daughter and reviewed all of this with her and daughter is ultimately in agreement with this plan. Patient is stable [facility]. Will arrange for transport.
ED Attending Note
-
Portions of this chart may have been created with voice recognition software.� Occasional wrong word or��sound alike� substitutions may have occurred due to the inherent limitations of voice recognition software.
Discharge Plan
Departure
Patient Disposition: Home (Routine Discharge)
Date of Disposition: 09/30/23
Time of Disposition: 11:20
Patient with high blood pressure during this ER visit?: No
Discharge Problem:
Unwitnessed fall
Instructions: Preventing falls in adults
Prescriptions:
No Action
acetaminophen 325 MG tablet
650 mg PO Q4HPRN PRN (Reason: mild pain/temp>100F)
Referrals:
Quincy Goncalves I., DO [Family Provider] -
Interventions
Interventions:
*Risk Screen - Suicide Last Done: 09/30/23 06:12
*General Assessment Last Done: 09/30/23 06:12
*Neglect/Abuse Screening Last Done: 09/30/23 06:12
ED- Fall Risk Assessment Last Done: 09/30/23 06:34
*ED COVID-19 Vaccine History Last Done: 09/30/23 06:21
*Nursing Disposition Last Done: 09/30/23 12:44
ED-Musculoskeletal Assessment Last Done: 09/30/23 08:14
ED- Neurological Assessment Last Done: 09/30/23 06:55
ED-Skin Assessment Last Done: 09/30/23 07:25
Discharge Date and Time
Discharge Date/Time: 09/30/23 12:46
Print Language: SYRIAC
--- NOTE | 2023-09-30 07:43 | EDRN ---
Combative when attempting to get BP; Good cap refill distally, good radial pulses
[2023-09-30 09:05] VITALS: BP 126/81
[2023-09-30] MEDS: HALDOL 3 MG IM (09:48)
[2023-09-30 10:22] VITALS: BP 134/66
== END 2023-09-30 12:46 | disposition home or self-care (01) ==
LOC: EMR 06:09
PROVIDERS: EMERGENCY PHYSICIAN Emergency Medicine; FAMILY PHYSICIAN Internal Medicine
DX: Z04.89 Encounter for examination and observation for other specified reasons (principal); W19.XXXA Unspecified fall, initial encounter; E78.00 Pure hypercholesterolemia, unspecified; F02.82 Dementia in other diseases classified elsewhere, unspecified severity, with psychotic disturbance; G30.9 Alzheimer's disease, unspecified; I10 Essential (primary) hypertension; K21.9 Gastro-esophageal reflux disease without esophagitis
CPT/HCPCS: 99283; 96372; 72170

== ENCOUNTER 2024-03-16 16:56 | Emergency (ER) | payer MEDICARE, OTHER, SELFPAY ==
[2024-03-16 17:02] VITALS: BP 132/93
--- NOTE | 2024-03-16 17:05 | ED.GENMED ---
History of Present Illness
<Madelin Soliman PA-C - Last Filed: 03/16/24 20:37>
General
Chief Complaint: Fall
Source: half-way
Exam Limitations: non verbal-adult and dementia
Time Seen by Provider: 03/16/24 17:04
Nursing documentation reviewed up to this point in time: agreed with
History of Present Illness
History of Present Illness:
Patient is a 88 y.o nonverbal female with dementia, HTN, diabetes presenting to the emergency department via EMS for witnessed fall today. Patient nonverbal with dementia and unable to provide history. Did contact nursing facility and spoke to
nurse who states patient was attempting to get out of her chair when she fell forward striking her forehead. There was no witnessed loss of consciousness. She did have a mild skin tear on her forehead which they closed with Steri-Strips. Sent to
the emergency department for further evaluation.
Patient not on any blood thinners.
Past History
<Madelin Soliman PA-C - Last Filed: 03/16/24 20:37>
Past History
ED Past Medical History: GERD, HTN, Hypercholesterolemia, Psychiatric and Other (Dementia, paranoia)
ED Past Surgical History: Orthopedic
Social History
Tobacco: Other (Unknown)
Alcohol: Other (Unknown)
Drug: Other (Unknown)
Living: half-way
Review of Systems
<Madelin Soliman PA-C - Last Filed: 03/16/24 20:37>
Review of Systems
Allergies reviewed?: Yes
All Other Systems: ROS reviewed and negative except as documented in HPI and ROS
Phy Exam
<Madelin Soliman PA-C - Last Filed: 03/16/24 20:37>
Physical Exam
Physical Exam:
GENERAL: No acute distress
HEENT: Small hematoma to forehead. Small skin tear with [address] Ster[address] Extraocular muscles intact, no signs of entrapment, dentition intact, no other obvious trauma
NECK: no midline tenderness, normal range of motion, no other obvious trauma
BACK: no midline tenderness, no other obvious trauma,
CHEST: no tenderness, no flail segment, no subcutaneous emphysema, no other obvious trauma
LUNGS: clear to auscultation bilaterally
CARDIOVASCULAR: regular rate and rhythm
ABDOMEN: soft, non-tender, no masses, no other obvious trauma
PELVIS: stable, no obvious injury
EXTREMITIES: moving all extremities, distal pulses intact, no other obvious trauma
NEUROLOGIC: awake. nonverbal. No focal deficits
Course
<Madelin Soliman PA-C - Last Filed: 03/16/24 20:37>
Orders/Labs/Results
Orders:
Orders
03/16/24 17:19
Cervical Spine wo Contrast CT [CT Cervical Spine W/o Iv Contr] Urgent
Comment:
Reason For Exam: fall, forehead strike
Tetanus/Diphth/Acelpertussis [Adacel] 0.5 ml IM .ONCE ONE
03/16/24 17:20
CT Head W/o Iv Contrast Urgent
Comment:
Reason For Exam: fall, forehead contusion
Vital Signs
Initial and Last Documented VS:
Initial Vital Signs
Temp Pulse Resp BP Pulse Ox
97.4 F 61 14 132/93 98
03/16/24 17:02 03/16/24 17:02 03/16/24 17:02 03/16/24 17:02 03/16/24 17:02
Last Documented Vital Signs
Temp Pulse Resp BP Pulse Ox
97.4 F 68 14 138/71 95
03/16/24 17:02 03/16/24 19:00 03/16/24 19:00 03/16/24 19:00 03/16/24 19:00
<Efrain Su DO - Last Filed: 03/16/24 21:22>
Orders/Labs/Results
Orders:
Orders
03/16/24 17:19
Cervical Spine wo Contrast CT [CT Cervical Spine W/o Iv Contr] Urgent
Comment:
Reason For Exam: fall, forehead strike
Tetanus/Diphth/Acelpertussis [Adacel] 0.5 ml IM .ONCE ONE
03/16/24 17:20
CT Head W/o Iv Contrast Urgent
Comment:
Reason For Exam: fall, forehead contusion
Vital Signs
Initial and Last Documented VS:
Initial Vital Signs
Temp Pulse Resp BP Pulse Ox
97.4 F 61 14 132/93 98
03/16/24 17:02 03/16/24 17:02 03/16/24 17:02 03/16/24 17:02 03/16/24 17:02
Last Documented Vital Signs
Temp Pulse Resp BP Pulse Ox
97.4 F 68 14 138/71 95
03/16/24 17:02 03/16/24 19:00 03/16/24 19:00 03/16/24 19:00 03/16/24 19:00
<Madelin Soliman PA-C - Last Filed: 03/16/24 20:37>
MDM/Problems Addressed
Differential Diagnosis Includes:
Not limited to: Contusion, abrasion, concussion, intracranial bleed, cervical spine fracture, etc.
MDM/Problems Addressed:
88 year old female presenting following mechanical fall with associated frontal head strike. Patient nonverbal with dementia and unable to contribute to history. There is no reported loss of consciousness. Patient sleeping comfortably in no
apparent distress. Vital signs are stable. She does have a small hematoma on her left forehead. There is small abrasion/skin tear which was closed with 2 Steri-Strips prior to arrival to emergency department and skin appears approximated. There
is no evidence of other traumatic injuries. Patient not on any blood thinners. Will obtain CT of head and cervical spine. Will update tetanus. Will closely monitor and reassess.
Update: CT head and cervical spine reviewed. No acute abnormalities. Patient stable for transport back to nursing facility. CT reports given with discharge to follow-up on incidental findings from CT scan. Patient seen with attending physician
Chronic conditions affecting care:
Dementia, hypertension
Acute Exacerbation and/or Progression of Chronic Illness:
N/A
<Madelin Soliman PA-C - Last Filed: 03/16/24 20:37>
*Radiology
Radiology exam reviewed: preliminary read by ED provider and radiology read reviewed
*Pulse Oximetry
Patient hypoxic: no
*EKG
Interpreted by ED Provider?: NA
*Program Consultant Interpretation
Rate: Program Consultant- N/A
*Critical Care Note
Total Time (30-74mins, 75-104mins- exclusive of procedures): Not Applicable
ED Attending Note
<Madelin Soliman PA-C - Last Filed: 03/16/24 20:37>
-
Portions of this chart may have been created with voice recognition software.� Occasional wrong word or��sound alike� substitutions may have occurred due to the inherent limitations of voice recognition software.
<Efrain Su DO - Last Filed: 03/16/24 21:22>
ED Attending Note
Patient seen and examined by attending physician: Yes
I performed the substantive portion of visit, reviewed & personally made and approve the management plan that is documented in note by myself or MICHELLE.: Yes
Discharge Plan
Departure
Patient Disposition: Home (Routine Discharge)
Date of Disposition: 03/16/24
Time of Disposition: 20:03
Patient with high blood pressure during this ER visit?: Yes
Condition: Good
Covid-19: Not Applicable
Discharge Problem:
Fall, Hematoma of frontal scalp
Instructions: Preventing falls in adults, BLOOD PRESSURE, Hematoma
Prescriptions:
No Action
acetaminophen 325 MG tablet
650 mg PO Q4HPRN PRN (Reason: mild pain/temp>100F)
acetaminophen 325 mg Tablet
650 mg PO DAILY
lorazepam 0.5 mg/ml gel
0.5 mg topical [id number] PRN (Reason: anxiety/agitation)
Patient Comments:
apply to neck
Referrals:
Quincy Goncalves I., DO [Family Provider] -
Activity Restrictions/Additional Instructions:
RETURN TO THE EMERGENCY DEPARTMENT WITH SEVERE HEADACHE, VOMITING, CHANGES IN MENTAL STATUS, SEVERE NECK PAIN, WORSENING IN CURRENT SYMPTOMS, OR ANY OTHER CONCERNS
-Continue to ice scalp as needed. Keep wound clean and dry. Monitor for any signs of infection and return to the emergency department with any concerns.
-There was an incidental finding on your cervical spine CT. You should have this followed up with your primary care doctor for further evaluation/imaging if needed. The report has been printed and sent back to the facility with you.
-Follow-up with primary care for further evaluation/management
Monitor symptoms closely return to the emergency department any acute worsening/new symptoms
Interventions
Interventions:
*Risk Screen - Suicide Last Done: 03/16/24 17:02
*General Assessment Last Done: 03/16/24 17:02
*Neglect/Abuse Screening Last Done: 03/16/24 17:02
ED- Fall Risk Assessment Last Done: 03/16/24 17:21
*ED COVID-19 Vaccine History Last Done: 03/16/24 17:21
ED-Musculoskeletal Assessment Last Done: 03/16/24 17:21
ED- Neurological Assessment Last Done: 03/16/24 17:21
ED-Skin Assessment Last Done: 03/16/24 17:21
Discharge Date and Time
Print Language: ITALIAN
[2024-03-16 18:00] VITALS: BP 154/78
[2024-03-16] MEDS: ADACEL 0.5 ML IM (18:08)
[2024-03-16 19:00] VITALS: BP 138/71
[2024-03-16 23:00] VITALS: BP 142/88
== END 2024-03-17 01:53 ==
LOC: EMR 16:56
PROVIDERS: EMERGENCY PHYSICIAN Emergency Medicine; FAMILY PHYSICIAN Internal Medicine
DX: S00.83XA Contusion of other part of head, initial encounter (principal); S00.81XA Abrasion of other part of head, initial encounter; W07.XXXA Fall from chair, initial encounter; E11.9 Type 2 diabetes mellitus without complications; E78.00 Pure hypercholesterolemia, unspecified; F03.90 Unspecified dementia, unspecified severity, without behavioral disturbance, psychotic disturbance, mood disturbance, and anxiety; I10 Essential (primary) hypertension; K21.9 Gastro-esophageal reflux disease without esophagitis; Z23 Encounter for immunization
CPT/HCPCS: 90471; 99284; 70450; 72125; 90715